=== PATIENT | male | born 1985 | race Caucasian/White ===

== ENCOUNTER 2018-09-05 06:34 | Day surgery (SDC) | payer OTHER ==
[~2018-09-05 06:34] MED LIST: CEFAZOLIN 2 GM/D5W RTU 2 GM/50 ML RTUPB IV ONE; CEFAZOLIN 2 GM/D5W RTU 2 GM/50 ML RTUPB IV PRN
[2018-09-05] MEDS ORDERED: FENTANYL CITRATE INJ/PF 100 MCG/2 ML AMPUL ONE (06:36)
[2018-09-05] MEDS ORDERED: MIDAZOLAM 2 MG/2 ML INJ ONE (06:36)
[2018-09-05] MEDS ORDERED: PROPOFOL INJ 200 MG/20 ML VIAL IV ONE (06:36)
[2018-09-05] MEDS ORDERED: ACETAMINOPHEN 1,000 MG/100 ML RTUPB IV ONE (06:37)
[2018-09-05 06:59] LABS: ABSOLUTE EOSINOPHILS # (AUTO) 0.3 10^3/uL (0.0-0.6); ABSOLUTE LYMPHOCYTES (AUTO) 1.8 10^3/uL (0.5-4.7); ABSOLUTE MONOCYTES (AUTO) 0.6 10^3/uL (0.1-1.4); ABSOLUTE NEUT (AUTO) 2.9 10^3/uL (1.7-8.2); BASOPHILS % (AUTO) 0.8 % (0-2); EOSINOPHILS % (AUTO) 4.7 % (0-6); HEMATOCRIT 43.9 % (37.9-51.0); HEMOGLOBIN 15.3 g/dL (13.5-17.0); LYMPHOCYTES % (AUTO) 32.6 % (13-45); MEAN CORPUSCULAR HEMOGLOBIN 30.4 pg (27.0-33.4); MEAN CORPUSCULAR HGB CONC 34.9 g/dL (32.0-36.0); MEAN CORPUSCULAR VOLUME 87 fl (80-97); MONOCYTES % (AUTO) 10.8 % (3-13); PLATELET COUNT 146 10^3/uL (150-450); RED BLOOD COUNT 5.04 10^6/uL (4.35-5.55); RED CELL DISTRIBUTION WIDTH 12.8 % (11.5-14.0); SEGMENTED NEUTROPHILS % (AUTO) 51.1 % (42-78); TOTAL CELLS COUNTED % (AUTO) 100 %; WHITE BLOOD COUNT 5.7 10^3/uL (4.0-10.5)
[2018-09-05 07:16] LABS: ANION GAP 9 (5-19); BLOOD UREA NITROGEN 17 mg/dL (7-20); CALCIUM 9.2 mg/dL (8.4-10.2); CARBON DIOXIDE 28 mmol/L (22-30); CHLORIDE 105 mmol/L (98-107); GLUCOSE 87 mg/dL (75-110); POTASSIUM 3.9 mmol/L (3.6-5.0); SODIUM 142.4 mmol/L (137-145)
[2018-09-05] MEDS ORDERED: BUPIVACAINE HCL 0.5 % INJ/PF 30 ML SDV ONE (07:39)
[2018-09-05] MEDS ORDERED: LIDOCAINE 1% INJ-PF (10 MG/ML) 30 ML SDV ONE (07:39)
[2018-09-05] MEDS ORDERED: FENTANYL CITRATE INJ/PF 100 MCG/2 ML AMPUL IV PRN ×3 (09:07)
[2018-09-05] MEDS ORDERED: MEPERIDINE HCL/PF INJ 25 MG/1 ML DISP.SYRIN IV PRN (09:07)
[2018-09-05] MEDS ORDERED: MORPHINE SULFATE 10 MG/ML INJ IV PRN (09:07)
[2018-09-05] MEDS ORDERED: PROMETHAZINE HCL INJ 25 MG/1 ML VIAL IV PRN ×2 (09:07)
[2018-09-05] MEDS ORDERED: DIPHENHYDRAMINE HCL 50 MG/ML VIAL IV PRN (09:07)
--- NOTE | 2018-09-05 09:59 | EKG REPORT ---
SEVERITY:- NORMAL ECG - SINUS RHYTHM : Confirmed by: Darlyn Devine MD 05-Sep-2018 09:58:49
[2018-09-05] MEDS ORDERED: OXYCODONE-ACETAMINOPHEN 5-325 MG TABLET PO PRN (11:11)
[2018-09-05] MEDS ORDERED: ONDANSETRON HCL INJ/PF 4 MG/2 ML SDV IV PRN (11:18)
[2018-09-05 12:14] VITALS: BP 111/74
[2018-09-05] MEDS ORDERED: ONDANSETRON HCL INJ/PF 4 MG/2 ML SDV ONE (14:58)
[2018-09-05] MEDS ORDERED: KETOROLAC TROMETHAMINE 60 MG/2 ML SDV ONE (14:58)
[2018-09-05] MEDS ORDERED: DEXAMETHASONE SOD PHOSPHATE INJ 4 MG/1 ML VIAL ONE (14:58)
--- NOTE | 2018-09-05 16:12 | OPERATIVE REPORT E ---
Operative Report NAME: EDWIN ARNOLD : 1985 AGE: 33Y DATE OF SURGERY: 09/05/2018 ROOM: PREOPERATIVE DIAGNOSIS: RIGHT WRIST STT, SCAPHOTRAPEZIAL TRAPEZOID ARTHRITIS. POSTOPERATIVE DIAGNOSIS: RIGHT WRIST STT, SCAPHOTRAPEZIAL TRAPEZOID ARTHRITIS. PROCEDURE: 1. Right wrist STT, scaphotrapezial trapezoid arthroscopy with debridement and partial scaphoid excision. 2. Right wrist radial carpal arthroscopy with debridement. SURGEON: SYDNEE ROMANO M.D. ANESTHESIA: General. BLOOD LOSS: Minimal. COMPLICATIONS: None. INDICATIONS: The patient is a 33-year-old man with recalcitrant pain in his right wrist localized to the STT joint. He has failed nonoperative treatment including splinting, therapy, and injections. DESCRIPTION OF PROCEDURE: Following the induction of a general anesthetic with administration of antibiotics, the patient was positioned supine on the operating room table. Bony prominences were padded. A tourniquet was placed proximally on the right arm but not inflated. The right upper extremity was sterilely prepped with ChloraPrep and draped in the standard fashion. The arm was exsanguinated and the tourniquet inflated to 100 mm above systolic pressure. At the beginning of the procedure the FTT joint was localized with a 25 gauge needle. The arm was then placed in finger trap traction applied through the thumb. Incision was made just through the skin in the region of the needle. The needle was placed in the palmar STT portal just ulnar to the APL tendon. Blunt dissection was performed down to the capsule. The scope was placed through this portal and across the joints to locate the dorsal STT portal from an inside out technique. The arthroscope was placed to tent the skin. A counter incision was made ulnar to the EPL tendon and a cannula placed all the way through. The scope was then placed in the dorsal STT portal for visualization. With the scope in the dorsal STT portal a shaver was placed in the volar STT portal. Debridement of synovitis and chondromalacia was performed. There was a large fragment of cartilage. This was removed with a grasper. A pete was brought in, approximately 2-3 mm of the distal scaphoid was debrided back to a stable base. The wrist was placed in standard wrist traction with finger traps in the index and long fingers, 20 pounds of traction were placed to perform radial carpal arthroscopy. A standard 3-4 portal was made with localization, a sharp incision through the skin, blunt trocar entry, diagnostic arthroscopy was performed. Diagnostic arthroscopy demonstrated intact scapholunate ligament, intact TFCC. Another separate incision for a 6R portal was made with localization, a sharp incision through the skin, blunt trocar entry. A shaver was brought in for debridement and visualization. Scapholunate ligament was probed and was found to be intact. The hand was then taken out of finger trap traction. All portals were closed with monofilament suture, 0.25% Marcaine was injected into all portals for postoperative analgesia and a bulky sterile dressing was applied. The patient tolerated the procedure well without complications and was brought to the recovery room in stable condition. DICTATING PHYSICIAN: SYDNEE ROMANO M.D. [id number] [facility]#: [id number] ID: [id number] JOB#: [id number] ACCT: [id number] cc:SYDNEE ROMANO M.D. >
== END 2018-09-05 12:00 | disposition home or self-care (01) ==
LOC: OROUT 06:34
PROVIDERS: ATTEND Orthopaedic Surgery
DX: M19.031 Primary osteoarthritis, right wrist (principal); Z79.899 Other long term (current) drug therapy
CPT/HCPCS: 36415; 85025; 80048; 93005; 93010; 29844; 25999; J2250; J3490; J1100; J1885; J3010; J2405; J2704; J0690; J0131; 1830